=== PATIENT | male | born 1980 | race Caucasian/White ===

== ENCOUNTER 2021-09-09 19:34 | Emergency (ER) | payer SELFPAY ==
[2021-09-09 19:59] VITALS: PULSE 63; TEMP 98.6; BMI 31.4
[2021-09-09] MEDS ORDERED: amLODIPine BESYLATE 5 MG TABLET (FP) PO ONE (22:56)
[2021-09-09 23:30] LABS: BASO % 0.2 % (0-2.0); EOS % 1.2 % (0-4.5); HEMATOCRIT 43.2 % (35.4-49); HEMOGLOBIN 14.5 GM/dL (11.7-16.9); LYMPH % 20.4 % (8-40); MCHC 33.6 g/dl (32.0-35.9); MEAN CELL VOLUME 86.5 fl (80-96); MEAN PLT VOLUME 7.7 fl (7.5-11.1); MONO % 7.5 % (3.8-10.2); NEUT % 70.7 % (42.8-82.8); PLATELET COUNT 280 10^3/uL (134-434); RBC 4.99 M/mm3 (4.00-5.60); RDW 14.2 % (11.9-15.9); WHITE BLOOD COUNT 9.1 K/mm3 (4.0-10.0)
[2021-09-09 23:36] LABS: INR 1.06 (0.83-1.09); PROTHROMBIN TIME (PATIENT) 12.2 SEC (9.7-13.0)
[2021-09-09 23:39] LABS: ACTIVATED PTT 30.8 SECONDS (25.2-36.5)
[2021-09-09 23:53] LABS: ALBUMIN 4.2 g/dl (3.4-5.0); BLOOD UREA NITROGEN 12.3 mg/dL (7-18); CALCIUM 8.8 mg/dL (8.5-10.1)
[2021-09-09 23:56] LABS: CREATININE 0.8 mg/dL (0.55-1.3)
[2021-09-09 23:58] LABS: BILIRUBIN,TOTAL 0.5 mg/dL (0.2-1); TOT PROT 7.6 g/dl (6.4-8.2)
[2021-09-10 01:25] VITALS: BP 150/89
== END 2021-09-10 02:00 | disposition home or self-care (01) ==
LOC: JER 19:34
DX: I10 Essential (primary) hypertension (principal)
CPT/HCPCS: 36415; 71046-TC-FY; 80053; 84484; 85025; 85610; 85730; 93005; 93010; 99285-25

== ENCOUNTER 2021-09-19 23:25 | Emergency (ER) | payer SELFPAY ==
[2021-09-19 23:34] VITALS: BP 139/88; PULSE 79; TEMP 98; BMI 36.0
== END 2021-09-20 01:00 | disposition home or self-care (01) ==
LOC: JER 23:25
DX: R42 Dizziness and giddiness (principal)
CPT/HCPCS: 93005; 93010; 99283-25